=== PATIENT | male | born 1990 | race Caucasian/White ===

== ENCOUNTER → 2018-02-26 | Outpatient (CLI) | payer OTHER ==
[2018-02-26 14:41] LABS: HCT 43.4 % (39.0-53.0); HGB 14.5 gm/dL (13.0-17.5); MCHC 33.3 g/dL (31.0-37.0); Mean Platelet Volume 7.7; Platelet Count 222 k/uL (150-450); RBC 4.99 m/uL (4.30-5.90)
[2018-02-26 14:47] LABS: ALT 38 U/L (21-72); AST 23 U/L (17-59); Albumin 4.6 g/dL (3.5-5.0); Alkaline Phosphatase 55 U/L (38-126); Anion Gap 9 mmol/L; Blood Urea Nitrogen 10 mg/dL (9-20); C Reactive Protein <5.0 mg/L (<10.0); Calcium 9.5 mg/dL (8.4-10.2); Carbon Dioxide 27 mmol/L (22-30); Chloride 105 mmol/L (98-107); Glucose 100 mg/dL (74-99); Potassium 4.5 mmol/L (3.5-5.1); Sodium 141 mmol/L (137-145); Total Bilirubin 0.6 mg/dL (0.2-1.3); Total Protein 7.5 g/dL (6.3-8.2)
[2018-02-26 15:28] LABS: Erythrocyte Sedimentation Rate 7 mm/hr (0-15)
== END | disposition home or self-care (01) ==
LOC: LABWHC1 13:52
DX: R19.4 Change in bowel habit (principal); Z83.49 Family history of other endocrine, nutritional and metabolic diseases
CPT/HCPCS: 36415; 80053; 85027; 85652; 86140

== ENCOUNTER 2018-04-04 13:25 | Emergency (ER) | payer OTHER ==
[2018-04-04] MEDS ORDERED: SODIUM CHLORIDE 0.9% 500 ML IV STA (14:03)
--- NOTE | 2018-04-04 14:13 | ED ---
General Adult HPI - General Chief complaint: Abdominal Pain Stated complaint: abdominal pain Time Seen by Provider: 04/04/18 13:40 Source: patient, RN notes reviewed Mode of arrival: ambulatory Limitations: no limitations - History of Present Illness Initial comments: This is a 27-year-old male who comes in complaining of abdominal pain. Patient states he's been dealing with upper abdominal pain for the last 3 months and over the last week and a half it's been lower abdominal pain is bothering him. Patient states it feels gaseous in nature and he has been seeing a blocklayer for the last 3 months. Patient states she's nauseated at times but does not vomit. Patient denies diarrhea. Patient states he decreased the amount of food that he eats because he feels so that exacerbates the crampy abdominal pain. Patient states this morning he had 3 bowel movements with quite a bit of gas and he temporarily felt better. Patient states currently there is no epigastric abdominal pain like he has had most of the month it is this lower abdominal crampy pain that is been ongoing for a week and a half. - Related Data Home Medications Medication Instructions Recorded Confirmed Dicyclomine [Bentyl] 20 mg PO QID 04/04/18 04/04/18 Esomeprazole Magnesium [NexIUM] 20 mg PO DAILY 04/04/18 04/04/18 Fluticasone Nasal [place] [Flonase 1 spr EA NOSTRIL DAILY 04/04/18 04/04/18 Nasal [place]] diphenhydrAMINE [Benadryl] 50 mg PO DAILY PRN 04/04/18 04/04/18 Allergies Allergy/AdvReac Type Severity Reaction Status Date / Time cephalexin [From Keflex] Allergy Rash/Hives Verified 04/04/18 14:09 dicyclomine Allergy Nausea Verified 04/04/18 14:09 Review of Systems ROS Statement: Those systems with pertinent positive or pertinent negative responses have been documented in the HPI. ROS Other: All systems not noted in ROS Statement are negative. Past Medical History Past Medical History: No Reported History History of Any Multi-Drug Resistant Organisms: None Reported Past Surgical History: Adenoidectomy, Tonsillectomy Past Psychological History: ADD/ADHD Smoking Status: Former smoker Past Alcohol Use History: None Reported Past Drug Use History: None Reported General Exam - General Exam Comments Initial Comments: GENERAL: Patient is well-developed and well-nourished. Patient is nontoxic and well- hydrated and is in mild distress. ENT: Neck is soft and supple. No significant lymphadenopathy is noted. Oropharynx is clear. Moist mucous membranes. Neck has full range of motion without eliciting any pain. EYES: The sclera were anicteric and conjunctiva were pink and moist. Extraocular movements were intact and pupils were equal round and reactive to light. Eyelids were unremarkable. PULMONARY: Unlabored respirations. Good breath sounds bilaterally. No audible rales rhonchi or wheezing was noted. CARDIOVASCULAR: There is a regular rate and rhythm without any murmurs gallops or rubs. ABDOMEN: Minimal lower abdominal pain in the suprapubic region.. No palpable organomegaly was noted. There is no palpable pulsatile mass. SKIN: Skin is clear with no lesions or rashes and otherwise unremarkable. NEUROLOGIC: Patient is alert and oriented x3. Cranial nerves II through XII are grossly intact. Motor and sensory are also intact. Normal speech, volume and content. Symmetrical smile. MUSCULOSKELETAL: Normal extremities with adequate strength and full range of motion. No lower extremity swelling or edema. No calf tenderness. LYMPHATICS: No significant lymphadenopathy is noted PSYCHIATRIC: Normal psychiatric evaluation. Limitations: no limitations Course Vital Signs 04/04/18 13:40 Temperature 98.0 F Pulse Rate 107 H Respiratory 18 Rate Blood Pressure 126/88 O2 Sat by Pulse 99 Oximetry Medical Decision Making - Medical Decision Making Ultrasound showed no acute abnormality. KUB showed no acute abnormality. I went back in and reevaluated the patient he was in no distress and feeling better at this time he will follow-up with Dr. Longoria - Lab Data Result diagrams: 04/04/18 14:44 04/04/18 14:44 Lab Results 04/04/18 04/04/18 04/04/18 Range/Units 14:44 14:44 14:46 WBC 9.6 (3.8-10.6) k/uL RBC 5.20 (4.30-5.90) m/uL Hgb 14.8 (13.0-17.5) gm/dL Hct 44.2 (39.0-53.0) % MCV 84.9 (80.0-100.0) fL MCH 28.5 (25.0-35.0) pg MCHC 33.6 (31.0-37.0) g/dL RDW 12.7 (11.5-15.5) % Plt Count 239 (150-450) k/uL Neutrophils % 81 % Lymphocytes % 13 % Monocytes % 4 % Eosinophils % 1 % Basophils % 1 % Neutrophils # 7.8 H (1.3-7.7) k/uL Lymphocytes # 1.2 (1.0-4.8) k/uL Monocytes # 0.4 (0-1.0) k/uL Eosinophils # 0.1 (0-0.7) k/uL Basophils # 0.1 (0-0.2) k/uL Sodium 141 (137-145) mmol/L Potassium 4.3 (3.5-5.1) mmol/L Chloride 104 (98-107) mmol/L Carbon Dioxide 26 (22-30) mmol/L Anion Gap 11 mmol/L BUN 13 (9-20) mg/dL Creatinine 0.76 (0.66-1.25) mg/dL Est GFR (CKD-EPI)AfAm >90 (>60 ml/min/1.73 sqM) Est GFR (CKD-EPI)NonAf >90 (>60 ml/min/1.73 sqM) Glucose 104 H (74-99) mg/dL Calcium 9.6 (8.4-10.2) mg/dL Total Bilirubin 0.8 (0.2-1.3) mg/dL AST 27 (17-59) U/L ALT 35 (21-72) U/L Alkaline Phosphatase 65 (38-126) U/L Total Protein 8.0 (6.3-8.2) g/dL Albumin 4.7 (3.5-5.0) g/dL Amylase 41 (30-110) U/L Lipase 59 (23-300) U/L Urine Color Yellow Urine Appearance Clear (Clear) Urine pH 6.0 (5.0-8.0) Ur Specific [place] 1.028 (1.001-1.035) Urine Protein Trace H (Negative) Urine Glucose (UA) Negative (Negative) Urine Ketones 2+ H (Negative) Urine Blood Negative (Negative) Urine Nitrite Negative (Negative) Urine Bilirubin Negative (Negative) Urine Urobilinogen 2.0 (<2.0) mg/dL Ur Leukocyte Esterase Negative (Negative) Urine RBC 1 (0-5) /hpf Urine WBC 2 (0-5) /hpf Ur Squamous Epith Cells <1 (0-4) /hpf Hyaline Casts 2 (0-2) /lpf Urine Mucus Many H (None) /hpf Disposition Clinical Impression: Abdominal pain Disposition: HOME SELF-CARE Instructions: Abdominal Pain (ED) Is patient prescribed a controlled substance at d/c from ED?: No Referrals: Medina Fraser MD [Primary Care Provider] - 1-2 days Time of Disposition: 17:12
[2018-04-04 14:56] LABS: Basophils # (A) 0.1 k/uL (0-0.2); Basophils % (A) 1 %; Eosinophils # (A) 0.1 k/uL (0-0.7); Eosinophils % (A) 1 %; HCT 44.2 % (39.0-53.0); HGB 14.8 gm/dL (13.0-17.5); Lymphocytes # (A) 1.2 k/uL (1.0-4.8); Lymphocytes % (A) 13 %; MCH 28.5 pg (25.0-35.0); MCHC 33.6 g/dL (31.0-37.0); MCV 84.9 fL (80.0-100.0); Mean Platelet Volume 7.9; Monocytes # (A) 0.4 k/uL (0-1.0); Monocytes % (A) 4 %; Neutrophils # (A) 7.8 k/uL (1.3-7.7); Neutrophils % (A) 81 %; Platelet Count 239 k/uL (150-450); RDW 12.7 % (11.5-15.5); WBC 9.6 k/uL (3.8-10.6)
[2018-04-04 15:07] LABS: Appearance,Urine Clear (Clear); Bilirubin,Urine Negative (Negative); Blood,Urine Negative (Negative); Color,Urine Yellow; Glucose,Urine (UA) Negative (Negative); Ketones,Urine 2+ (Negative); Leukocyte Esterase,Urine Negative (Negative); Nitrite,Urine Negative (Negative); Protein,Urine Trace (Negative); Specific Gravity,Urine 1.028 (1.001-1.035)
[2018-04-04 15:09] LABS: ALT 35 U/L (21-72); AST 27 U/L (17-59); Albumin 4.7 g/dL (3.5-5.0); Alkaline Phosphatase 65 U/L (38-126); Amylase 41 U/L (30-110); Anion Gap 11 mmol/L; Blood Urea Nitrogen 13 mg/dL (9-20); Calcium 9.6 mg/dL (8.4-10.2); Carbon Dioxide 26 mmol/L (22-30); Chloride 104 mmol/L (98-107); Glucose 104 mg/dL (74-99); Lipase 59 U/L (23-300); Potassium 4.3 mmol/L (3.5-5.1); Sodium 141 mmol/L (137-145); Total Bilirubin 0.8 mg/dL (0.2-1.3)
[2018-04-04 15:10] LABS: Hyaline Casts,Urine 2 /lpf (0-2); Mucus,Urine Many /hpf; RBC,Urine 1 /hpf (0-5); Squamous Epithelial Cell,Urine <1 /hpf (0-4); WBC,Urine 2 /hpf (0-5)
--- NOTE | 2018-04-04 15:36 | XR ---
EXAMINATION TYPE: XR KUB DATE OF EXAM: 04/04/2018 COMPARISON: None INDICATION: Pain x4 months TECHNIQUE: Single view abdomen upright view FINDINGS: There is a nonspecific bowel gas pattern. Psoas margins are normal. No organomegaly is present. No suspicious calcifications are present. No suspicious air-fluid levels or differential air-fluid le vels are present. No free air is present. IMPRESSION: 1. Nonspecific bowel gas pattern.
--- NOTE | 2018-04-04 16:31 | US ---
EXAMINATION TYPE: US abdomen complete DATE OF EXAM: 04/04/2018 COMPARISON: NONE CLINICAL HISTORY: Pain. Intermittent N/V/D x 3 months, gets worse after eating fatty foods. EXAM MEASUREMENTS: Liver Length: 16.5 cm Gallbladder Wall: 0.2 cm CBD: 0.3 cm Spleen: 12.4 cm Right Kidney: 12.1 x 5.1 x 5.4 cm Left Kidney: 11.0 x 5.6 x 5.6 cm Pancreas: obscured by overlying midline bowel gas Liver: The liver is poorly penetrated by the ultrasound being. Gallbladder: wnl Evidence for sonographic Singh's sign: no CBD: wnl Spleen: wnl Right Kidney: wnl Left Kidney: wnl Upper IVC: Not seen Abd Aorta: proximal portion obscured, mid and distal wnl There is no ascites. There is no evidence of cholelithiasis. Common bile duct is unremarkable. T he spleen is unremarkable. Kidneys are symmetric and free of hydronephrosis. No renal lesions are s een. IMPRESSION: Exam somewhat limited. There may be underlying hepatocellular disease, hepatic steatosis.
[2018-04-04 17:22] VITALS: BP 142/71; PULSE 97; RESP 17; TEMP 97.3
== END 2018-04-04 17:22 | disposition home or self-care (01) ==
LOC: EC 13:25
DX: R10.30 Lower abdominal pain, unspecified (principal); R11.0 Nausea; Z87.891 Personal history of nicotine dependence; Z79.51 Long term (current) use of inhaled steroids; Z79.899 Other long term (current) drug therapy; Z88.1 Allergy status to other antibiotic agents; Z88.8 Allergy status to other drugs, medicaments and biological substances
CPT/HCPCS: 36415; 74018; 76700; 80053; 81003; 82150; 83690; 85025; 99284

== ENCOUNTER 2018-04-06 13:00 | Emergency (ER) | payer OTHER ==
[2018-04-06] MEDS ORDERED: SODIUM CHLORIDE 0.9% 1,000 ML IV STA (13:34)
--- NOTE | 2018-04-06 13:43 | ED ---
Abdominal Pain HPI - General Chief Complaint: Abdominal Pain Stated Complaint: Chest Pain,Abd Pain Time Seen by Provider: 04/06/18 13:10 Source: patient, family Mode of arrival: wheelchair Limitations: no limitations - History of Present Illness Initial Comments: This a 27-year-old male with PMH of lactose intolerance presenting today for chief complaint of abdominal pain and diarrhea 11 weeks. Patient states that 11 weeks ago he thought he had a GI virus with diarrhea and vomiting. The vomiting sided however he began having liquid diarrhea daily with any food that the patient ate. He especially noted loss stools with greasy foods. Pt has lost 45 lbs in the past 3 months, unintentionally. 12 days ago pt was evaluated by remote mortgage underwriter, Dr. Longoria who told pt he may have IBS and scheduled an appointment for a colonoscopy and EGD scheduled for this Sunday04/08/18. Patient states that he was seen on 04/04/18 for abdominal pain where an US of the gallbladder returned WNL with unremarkable lab findings, he was instructed to f/u with Dr. Longoria as scheduled. Patient states that at that time the pain was epigastric. Today patient states that the pain is lower abdominal cramping , this is diffuse and not localized to a specific region. He also admits to left upper quadrant pain. In addition mother stopped that patient was dehydrated due to reduced capillary refill. Patient denies any fever, vomiting , nausea, headache, hematochezia, melena, hematemesis, recent travel. Pt states he did take immodium yesterday that decreased the amount of diarrhea. Upon arrival patient's vital signs stable, patient is afebrile. Remainder of ROS negative including patient denies any shortness of breath, chest pain, back pain , numbness or tingling, dysuria or hematuria, constipation, headaches or visual changes, or any other complaints. - Related Data Home Medications Medication Instructions Recorded Confirmed Esomeprazole Magnesium [NexIUM] 20 mg PO DAILY 04/04/18 04/05/18 Fluticasone Nasal [place] [Flonase 1 spr EA NOSTRIL DAILY 04/04/18 04/05/18 Nasal [place]] diphenhydrAMINE [Benadryl] 50 mg PO DAILY PRN 04/04/18 04/05/18 Previous Rx's Medication Instructions Recorded Ciprofloxacin HCl [Cipro] 500 mg PO Q12HR 7 Days #14 tablet 04/06/18 metroNIDAZOLE [Flagyl] 500 mg PO TID 7 Days #21 tab 04/06/18 Allergies Allergy/AdvReac Type Severity Reaction Status Date / Time cephalexin [From Keflex] Allergy Rash/Hives Verified 04/06/18 13:04 dicyclomine Allergy Nausea Verified 04/06/18 13:04 Review of Systems ROS Statement: Those systems with pertinent positive or pertinent negative responses have been documented in the HPI. ROS Other: All systems not noted in ROS Statement are negative. Constitutional: Reports: chills (admits to chills today prior to arrival, no fever). Denies: fever Eyes: Denies: vision change ENT: Denies: throat pain Respiratory: Denies: cough, dyspnea, wheezes, hemoptysis, stridor Cardiovascular: Denies: chest pain, palpitations Gastrointestinal: Reports: abdominal pain (LUQ , diffuse lower abdominal), diarrhea (x 11 weeks liquid green). Denies: nausea, vomiting, constipation, hematemesis, melena, hematochezia Genitourinary: Denies: urgency, dysuria Musculoskeletal: Denies: back pain Skin: Denies: rash, lesions Neurological: Reports: weakness (weakness since he began having diarrhea 11 weeks ago). Denies: headache, numbness, paresthesias, confusion Past Medical History Past Medical History: GERD/Reflux Additional Past Medical History / Comment(s): cramping,bloating, abd. pain, weight loss, frequent diarrhea for >3 months, took immodium this afternoon & feels very dizzy & "horrible", seen in [facility] yesterday for above symptoms History of Any Multi-Drug Resistant Organisms: None Reported Past Surgical History: Adenoidectomy, Tonsillectomy Past Anesthesia/Blood Transfusion Reactions: No Reported Reaction Past Psychological History: ADD/ADHD Smoking Status: Former smoker Past Alcohol Use History: None Reported Past Drug Use History: None Reported - Past Family History Mother Family Medical History: No Reported History General Exam - General Exam Comments Initial Comments: General: The patient is awake and alert, in no distress, and does not appear acutely ill. Eye: +3 pupils are equal, round and reactive to light, extra-ocular movements are intact. No nystagmus. There is normal conjunctiva bilaterally. No signs of icterus. Ears, nose, mouth and throat: There are moist mucous membranes and no oral lesions. Cardiovascular: There is a regular rate and rhythm. No murmur, rub or gallop is appreciated. Respiratory: Lungs are clear to auscultation, respirations are non-labored, breath sounds are equal. No wheezes, stridor, rales, or rhonchi. Gastrointestinal: No noted diaphoresis, jaundice, protecting postures or squirming. Pt does appear to have some pallor, no pallor of the lids, mucosa. Symmetrical pigmentation of abdomen without signs of inflammation, or scars. Striae present over upper abdomen. Umbilicus mildline, inverted without swelling. No dilated veins. Abdomen contour obese, no noted abdominal distention. No visible masses. No peristalsis, aortic pulsations, or ventral hernia. Bowel sounds audible in all 4 quadrants, unremarkable. Mild tenderness to deep palpation over the LUQ, and bilateral lower abdomen, no rigidity, guarding or signs of peritoneal irritation. Liver edge, not palpable. Spleen edge, right and left kidney not palpable. Superior bladder margin non-tender. Special Testing:Negative Inez, Rovsing, McBurney, Jerad, Iliopsoas and obturator tests negative bilaterally. Negative Heel Jar test. No CVA tenderness. Digital rectal exam deferred. Negative adkins turners or cullens sign Musculoskeletal: Normal ROM, no tenderness. Strength 5/5. Sensation intact. Radial pulses equal bilaterally 2+. Capillary refill 2-3 seconds. Neurological: A&O x 3. CN II-XII intact, There are no obvious motor or sensory deficits. Coordination appears grossly intact. Speech is normal. Skin: Skin is warm and dry and no rashes or lesions are noted. Psychiatric: Cooperative, appropriate mood & affect, normal judgment. Limitations: no limitations Course Vital Signs 04/06/18 04/06/18 04/06/18 13:02 14:59 16:01 Temperature 97.7 F 98.4 F Pulse Rate 82 77 79 Respiratory 20 18 16 Rate Blood Pressure 144/99 132/83 130/89 O2 Sat by Pulse 99 100 99 Oximetry Medical Decision Making - Medical Decision Making Abdominal exam as noted above. No signs or symptoms concerning for acute abdomen or peritoneal irritation. Labs unremarkable, as noted above. CT revealed diffuse thickening of the sigmoid colon surrounds numerous diverticula with fascial plane thickening and mesenteric edema there is no evidence of obstruction, there are other scattered colonic diverticula. No right upper quadrant fat stranding patterns no pneumoperitoneum. CT findings consistent with uncomplicated sigmoid diverticulitis without abscess. There is a right renal cyst this incidental finding was discussed with patient and family, as well as CT findings noted above. Patient is unable to give a stool sample during his visit today however he was given supplies to obtain one for his follow-up visit with Dr. Longoria his remote mortgage underwriter, on Sunday. Patient was educated on a clear liquid diet for to 3 days as well as proper administration of antibiotic including avoidance of alcohol with Flagyl. I discussed contraindication of acute diverticulitis and colonoscopy, pt stated he would speak with Von about his procedure scheduled for Sunday. All findings were discussed with Dr. Kline who agrees with impression and plan. At this time feel patient is stable for outpatient therapy of diverticulitis with Flagyl and ciprofloxacin and gastroenterology follow-up as scheduled. Return parameters discussed. Patient denied questions at this time. Patient discharged in stable condition. - Lab Data Result diagrams: 04/06/18 14:00 04/06/18 14:00 Lab Results 04/06/18 04/06/18 Range/Units 14:00 14:00 WBC 6.1 (3.8-10.6) k/uL RBC 5.36 (4.30-5.90) m/uL Hgb 15.1 (13.0-17.5) gm/dL Hct 45.5 (39.0-53.0) % MCV 84.8 (80.0-100.0) fL MCH 28.2 (25.0-35.0) pg MCHC 33.3 (31.0-37.0) g/dL RDW 12.7 (11.5-15.5) % Plt Count 239 (150-450) k/uL Neutrophils % 72 % Lymphocytes % 20 % Monocytes % 5 % Eosinophils % 2 % Basophils % 1 % Neutrophils # 4.3 (1.3-7.7) k/uL Lymphocytes # 1.2 (1.0-4.8) k/uL Monocytes # 0.3 (0-1.0) k/uL Eosinophils # 0.1 (0-0.7) k/uL Basophils # 0.0 (0-0.2) k/uL Sodium 141 (137-145) mmol/L Potassium 4.3 (3.5-5.1) mmol/L Chloride 106 (98-107) mmol/L Carbon Dioxide 23 (22-30) mmol/L Anion Gap 12 mmol/L BUN 12 (9-20) mg/dL Creatinine 0.88 (0.66-1.25) mg/dL Est GFR (CKD-EPI)AfAm >90 (>60 ml/min/1.73 sqM) Est GFR (CKD-EPI)NonAf >90 (>60 ml/min/1.73 sqM) Glucose 97 (74-99) mg/dL Calcium 9.8 (8.4-10.2) mg/dL Total Bilirubin 0.8 (0.2-1.3) mg/dL AST 31 (17-59) U/L ALT 39 (21-72) U/L Alkaline Phosphatase 73 (38-126) U/L Total Protein 8.4 H (6.3-8.2) g/dL Albumin 4.8 (3.5-5.0) g/dL Amylase 53 (30-110) U/L Lipase 85 (23-300) U/L Disposition Clinical Impression: Diverticulitis of sigmoid colon Disposition: HOME SELF-CARE Condition: Good Instructions: Diverticulitis (ED), Diverticulitis Diet (ED) Additional Instructions: Please use medication as discussed. Please follow-up with Dr. Longoria as scheduled Sunday and primary care provider within the next week for evaluation. Please follow-clear liquid diet for next 2-3 days. Please return to emergency room if the symptoms increase or worsen or for any other concerns. Prescriptions: Ciprofloxacin HCl [Cipro] 500 mg PO Q12HR 7 Days #14 tablet metroNIDAZOLE [Flagyl] 500 mg PO TID 7 Days #21 tab Is patient prescribed a controlled substance at d/c from ED?: No Referrals: Medina Fraser MD [Primary Care Provider] - 1-2 days Time of Disposition: 15:42
[2018-04-06 14:12] LABS: Basophils % (A) 1 %; Eosinophils # (A) 0.1 k/uL (0-0.7); Eosinophils % (A) 2 %; HCT 45.5 % (39.0-53.0); HGB 15.1 gm/dL (13.0-17.5); Lymphocytes # (A) 1.2 k/uL (1.0-4.8); Lymphocytes % (A) 20 %; MCH 28.2 pg (25.0-35.0); MCHC 33.3 g/dL (31.0-37.0); MCV 84.8 fL (80.0-100.0); Mean Platelet Volume 7.9; Monocytes # (A) 0.3 k/uL (0-1.0); Monocytes % (A) 5 %; Neutrophils # (A) 4.3 k/uL (1.3-7.7); Neutrophils % (A) 72 %; Platelet Count 239 k/uL (150-450); RBC 5.36 m/uL (4.30-5.90); RDW 12.7 % (11.5-15.5); WBC 6.1 k/uL (3.8-10.6)
[2018-04-06 14:21] LABS: ALT 39 U/L (21-72); AST 31 U/L (17-59); Albumin 4.8 g/dL (3.5-5.0); Alkaline Phosphatase 73 U/L (38-126); Amylase 53 U/L (30-110); Anion Gap 12 mmol/L; Blood Urea Nitrogen 12 mg/dL (9-20); Calcium 9.8 mg/dL (8.4-10.2); Carbon Dioxide 23 mmol/L (22-30); Chloride 106 mmol/L (98-107); Glucose 97 mg/dL (74-99); Lipase 85 U/L (23-300); Potassium 4.3 mmol/L (3.5-5.1); Sodium 141 mmol/L (137-145); Total Bilirubin 0.8 mg/dL (0.2-1.3); Total Protein 8.4 g/dL (6.3-8.2)
--- NOTE | 2018-04-06 14:56 | CT ---
EXAMINATION TYPE: CT abdomen pelvis w con DATE OF EXAM: 04/06/2018 COMPARISON: None HISTORY: Stomach pains that radiate down left side into pelvis CT DLP: 1671 mGycm Automated exposure control for dose reduction was used. TECHNIQUE: Helical acquisition of images was performed from the lung bases through the pelvis. CONTRAST: Performed without Oral Contrast and with IV Contrast, patient injected with 100 mL of Isovue 300. FINDINGS: LUNG BASES: There is minimal bibasilar subsegmental dependent atelectasis. LIVER/GB: No significant abnormality is appreciated. No cholelithiasis. PANCREAS: No significant abnormality is seen. SPLEEN: No significant abnormality is seen. No splenomegaly. ADRENALS: No significant abnormality is seen. No nodularity or thickening. KIDNEYS: Although the right renal lesion is fluid attenuated is indeterminate as there are irregular margins. This measures 1.6 cm in the right superior pole. Renal ultrasound could ensure increased thr ough transmission although this is favored to be benign as there is no appreciable enhancement on del ayed imaging. FREE AIR: No free air is visualized. REPRODUCTIVE ORGANS: No significant abnormality is seen URINARY BLADDER: No significant abnormality is seen. ADENOPATHY: Scattered nonenlarged mesenteric lymph nodes are likely reactive to the pelvic inflammat ory change. No greater than 1 cm short axis lymph nodes are seen within the abdomen or pelvis. OSSEOUS STRUCTURES: No significant abnormality is seen. BOWEL: There is diffuse thickening of the sigmoid colon surrounds numerous diverticula with fascial plane thickening and mesenteric edema. No proximal obstruction. Remainder of the bowel is unremarkabl e other than few other scattered colonic diverticula. No right lower quadrant fat stranding changes. No dilated large or small bowel. No fluid collection to suggest abscess. No pneumoperitoneum. IMPRESSION: 1. ACUTE UNCOMPLICATED SIGMOID DIVERTICULITIS. NO PNEUMOPERITONEUM OR ABSCESS. 2. POSSIBLE RIGHT RENAL CYST. RENAL ULTRASOUND COULD ASSESS FOR INCREASED OR TRANSMISSION ON A NONEME RGENT BASIS.
[2018-04-06 16:02] VITALS: BP 130/89; PULSE 79; RESP 16; TEMP 98.4
== END 2018-04-06 16:14 | disposition home or self-care (01) ==
LOC: EC 13:00
DX: K57.32 Diverticulitis of large intestine without perforation or abscess without bleeding (principal); K21.9 Gastro-esophageal reflux disease without esophagitis; Z87.891 Personal history of nicotine dependence; Z79.51 Long term (current) use of inhaled steroids; Z79.899 Other long term (current) drug therapy; Z88.1 Allergy status to other antibiotic agents; Z88.8 Allergy status to other drugs, medicaments and biological substances
CPT/HCPCS: 36415; 80053; 82150; 83690; 85025; 74177; 99284; 96360; 96361; Q9967

== ENCOUNTER 2018-06-07 08:42 | Day surgery (SDC) | payer OTHER ==
[2018-05-31 10:07] VITALS: BMI 28.5
[~2018-06-07 08:42] MED LIST: CLINDAMYCIN 900 MG in DEXTROSE 5% IN WATER 50 ML IVPB ONE; DEXAMETHASONE SOD PHOSPHATE 10 MG/ML 1 ML VIAL IV ONE; GENTAMICIN 400 MG in SODIUM CHLORIDE 0.9% 100 ML IVPB ONE; HEPARIN SODIUM,PORCINE 5,000 UNIT/ML 1 ML VIAL SQ ONE; LACTATED RINGERS 1,000 ML IV SCH; MIDAZOLAM 2 MG/2 ML VIAL IV PRN; ONDANSETRON 4 MG/2 ML VIAL IVP ONE; SCOPOLAMINE 1.5MG/72HR PATCH TRANSDERM ONE
[2018-06-07 09:33] VITALS: RESP 16
[2018-06-07] MEDS ORDERED: LIDOCAINE 1% INJ 10MG/ML (20 ML MDV) ONE (10:47)
[2018-06-07] MEDS ORDERED: NEOSTIGMINE 1 MG/ML 10 ML VIAL ONE (10:47)
[2018-06-07] MEDS ORDERED: SUCCINYLCHOLINE CHLORIDE 100 MG/5 ML SYR IV ONE (10:47)
[2018-06-07] MEDS ORDERED: PROPOFOL 10 MG/ML 20 ML VIAL IV ONE (10:47)
[2018-06-07] MEDS ORDERED: GLYCOPYRROLATE 0.2 MG/ML 2 ML VIAL ONE (10:47)
[2018-06-07] MEDS ORDERED: KETOROLAC 30 MG/ML 1 ML VIAL ONE (10:47)
[2018-06-07] MEDS ORDERED: fentaNYL (PF) 50 MCG/ML 2 ML AMP ONE (10:47)
[2018-06-07] MEDS ORDERED: MIDAZOLAM 2 MG/2 ML VIAL ONE (10:47)
[2018-06-07] MEDS ORDERED: ROCURONIUM BROMIDE 10 MG/ML 10 ML VIAL IV ONE (10:47)
--- NOTE | 2018-06-07 10:47 | P.GSHP ---
History of Present Illness H&P Date: 06/07/18 Chief Complaint: Right upper quadrant pain This is a 28-year-old male presents today for a laparoscopic cholecystectomy. Patient's had complaints of right quadrant pain after eating greasy and fried foods. He was diagnosed with chronic cholecystitis. Past Medical History Past Medical History: GERD/Reflux Additional Past Medical History / Comment(s): MIGRAINE HEADACHE, CYST ON THE KIDNEY", DIVERTICULITIS History of Any Multi-Drug Resistant Organisms: None Reported Past Surgical History: Adenoidectomy, Tonsillectomy Additional Past Surgical History / Comment(s): BILATERAL MYRINGOTOMY WITH TUBES Past Anesthesia/Blood Transfusion Reactions: No Reported Reaction Smoking Status: Former smoker - Past Family History Mother Family Medical History: No Reported History Medications and Allergies Home Medications Medication Instructions Recorded Confirmed Type Esomeprazole Magnesium [NexIUM] 20 mg PO DAILY 04/04/18 06/07/18 History Fluticasone Nasal [place] [Flonase 1 spr EA NOSTRIL DAILY PRN 04/04/18 06/07/18 History Nasal [place]] Cetirizine HCl [Zyrtec] 10 mg PO DAILY 05/31/18 06/07/18 History Allergies Allergy/AdvReac Type Severity Reaction Status Date / Time cephalexin [From Keflex] Allergy Rash/Hives Verified 06/07/18 09:46 dicyclomine Allergy Nausea Verified 06/07/18 09:46 ciprofloxacin [From Cipro] AdvReac Nausea Verified 06/07/18 09:46 Surgical - Exam Vital Signs Temp Pulse Resp BP Pulse Ox 97.9 F 92 16 157/94 98 06/07/18 09:32 06/07/18 09:32 06/07/18 09:32 06/07/18 09:32 06/07/18 09:32 - General well developed, no distress - Eyes PERRL - ENT normal pinna - Neck no masses - Respiratory normal expansion - Cardiovascular Rhythm: regular - Abdomen Abdomen: soft, non tender Assessment and Plan Assessment: Chronic cholecystitis. We'll perform laparoscopic cholecystectomy.
[2018-06-07] MEDS ORDERED: BUPIVACAIN-EPI 0.25%-1:200,000 30 ML VIAL IJ ONE (11:15)
[2018-06-07 11:50] VITALS: TEMP 97.4
--- NOTE | 2018-06-07 12:02 | P.OP ---
Date of Procedure: 06/07/18 Preoperative Diagnosis: Cholecystitis Postoperative Diagnosis: Cholecystitis Procedure(s) Performed: Laparoscopic cholecystectomy Anesthesia: PRINCE Surgeon: Ji Arauz Estimated Blood Loss (ml): 5 Pathology: other (Gallbladder) Condition: stable Disposition: PACU Description of Procedure: The patient was placed on the operating table. The patient received a general endotracheal tube anesthesia. The patients abdomen was prepped and draped in the usual sterile fashion. Through an infraumbilical stab incision, the fascia of the anterior abdominal wall was grasped with a pair of Kochers and then the Veress needle was placed in the peritoneal cavity. Position of the Veress needle was confirmed with positive drop test. The abdomen was then insufflated. After adequate insufflation, the 10 mm trocar was placed in the peritoneal cavity. Following this the laparoscope was placed in the peritoneal cavity. The patient was placed in the head-up, right side up position and then a 5 mm trocar was placed in the right lateral and right subcostal position under direct visualization. A 8 mm trocar was placed in the epigastric position. The gallbladder was grasped in the fundus and infundibulum. Traction on the gallbladder was placed in the lateral and the cephalad positions. The triangle of Calot was visualized.. The cystic duct was bluntly dissected until the union of the cystic duct and common bile duct was seen. The cystic duct was then divided and sealed with the Harmonic scissors. A PDS Endoloop was then placed throughout the cystic duct stump. The cystic artery divided and sealed with the Harmonic scissors. The gallbladder was then removed from the liver bed using Harmonic scissors. The gallbladder was then extracted through the epigastric port site. Operative field was checked for any bleeding spots and Harmonic scissors was used to coagulate the liver bed. The abdomen was irrigated. The trocars were removed. The skin was closed using interrupted 3-0 Vicryl suture. Dermabond dressing were applied. The patient tolerated the procedure well.
[2018-06-07] MEDS ORDERED: LACTATED RINGERS 1,000 ML IV ONE ×2 (12:24)
[2018-06-07] MEDS: fentaNYL (PF) 50 MCG/ML 2 ML AMP IV PRN ×2 (12:30→12:33)
[2018-06-07 14:29] VITALS: BP 112/70; PULSE 100
[2018-06-07] MEDS ORDERED: HYDROcodone/APAP 7.5-325MG 1 EACH TAB PO ONE (15:04)
== END 2018-06-07 15:51 | disposition home or self-care (01) ==
LOC: OR 08:42
PROVIDERS: ATTEND Surgery
DX: K80.10 Calculus of gallbladder with chronic cholecystitis without obstruction (principal); K21.9 Gastro-esophageal reflux disease without esophagitis; Z87.891 Personal history of nicotine dependence; G43.909 Migraine, unspecified, not intractable, without status migrainosus; Z79.899 Other long term (current) drug therapy; Z88.1 Allergy status to other antibiotic agents
CPT/HCPCS: 88304; 47562; J2250; J1644; J1100; J2710; J2405; J2001; J3010; J1885; J0330; J2704

== ENCOUNTER 2020-10-02 19:12 | Emergency (ER) | payer OTHER ==
[2020-10-02] MEDS ORDERED: KETOROLAC 15 MG/ML 1 ML VIAL IVP STA (21:20)
[2020-10-02] MEDS ORDERED: SODIUM CHLORIDE 0.9% 500 ML 500 ML IV ONE (21:20)
[2020-10-02 21:26] LABS: Basophils % (A) 1 %; Eosinophils # (A) 0.1 k/uL (0-0.7); Eosinophils % (A) 2 %; HCT 43.1 % (39.0-53.0); HGB 14.7 gm/dL (13.0-17.5); Lymphocytes # (A) 1.3 k/uL (1.0-4.8); Lymphocytes % (A) 32 %; MCH 29.5 pg (25.0-35.0); MCHC 34.1 g/dL (31.0-37.0); MCV 86.5 fL (80.0-100.0); Mean Platelet Volume 8.4; Monocytes # (A) 0.3 k/uL (0-1.0); Monocytes % (A) 7 %; Neutrophils # (A) 2.4 k/uL (1.3-7.7); Neutrophils % (A) 58 %; Platelet Count 137 k/uL (150-450); RBC 4.98 m/uL (4.30-5.90); RDW 12.4 % (11.5-15.5); WBC 4.2 k/uL (3.8-10.6)
[2020-10-02] MEDS ORDERED: BAMLANIVIMAB (EUA) 700 MG, ETESEVIMAB (EUA) 1,400 MG in SODIUM CHLORIDE 0.9% 50 ML IVPB ONE (21:30)
[2020-10-02 21:36] LABS: ALT 42 U/L (4-49); AST 51 U/L (17-59); African American GFR (CKD) >90 (>60 ml/min/1.73 sqM); Albumin 4.5 g/dL (3.5-5.0); Alkaline Phosphatase 63 U/L (38-126); Anion Gap 8 mmol/L; Blood Urea Nitrogen 14 mg/dL (9-20); Calcium 8.6 mg/dL (8.4-10.2); Carbon Dioxide 26 mmol/L (22-30); Chloride 103 mmol/L (98-107); Glucose 104 mg/dL (74-99); Non-African American GFR(CKD) >90 (>60 ml/min/1.73 sqM); Potassium 4.1 mmol/L (3.5-5.1); Sodium 137 mmol/L (137-145); Total Bilirubin 0.7 mg/dL (0.2-1.3); Total Protein 7.6 g/dL (6.3-8.2)
--- NOTE | 2020-10-02 21:39 | XR ---
EXAMINATION TYPE: XR chest 2V DATE OF EXAM: 10/02/2020 COMPARISON: NONE HISTORY: Short of breath TECHNIQUE: 2 views FINDINGS: Heart and mediastinum are normal. Lungs are clear of infiltrate. There is no heart failure. There are no hilar masses. Costophrenic angles are clear. IMPRESSION: No active cardiopulmonary disease. Normal heart.
--- NOTE | 2020-10-02 21:42 | ED ---
General Adult HPI - General Chief complaint: Shortness of Breath Stated complaint: SOB,Fever,Cough, COVID + Time Seen by Provider: 10/02/20 20:49 Source: patient Mode of arrival: ambulatory Limitations: no limitations - History of Present Illness Initial comments: 30-year-old male presenting for positive Covid with terrible coughing episodes shortness of breath. Patient states that he has had difficulty breathing secondary to frequent coughing episodes. Patient states that he began having body aches and feeling as though he had a fever on September 25 he states he tested +2 days later. Patient provided results on a patient portal on his phone. Carin ent states that since he continues to have cough body aches and shortness of breath he states he coughed so much that he feels short of breath he denies any pain with deep inspiration, chest pressure, leg swelling, calf pain, nausea, vomiting, diarrhea. Pateint admits to fevers. Patient on arrival is saturating well on RA - Related Data Home Medications Medication Instructions Recorded Confirmed Esomeprazole Magnesium [NexIUM] 20 mg PO DAILY 04/04/18 07/23/18 Fluticasone Nasal [place] [Flonase 1 spr EA NOSTRIL DAILY PRN 04/04/18 07/23/18 Nasal [place]] Cetirizine HCl [Zyrtec] 10 mg PO DAILY 05/31/18 07/23/18 Ascorbic Acid [Vitamin C] 1,000 mg PO DAILY 07/22/18 07/23/18 Cholecalciferol [Vitamin D3] 5,000 unit PO BID 07/22/18 07/23/18 Dextroamphetamine/Amphetamine 10 mg PO BID PRN 07/22/18 07/23/18 [Adderall] L.acidoph,Paracasei, B.lactis 1 each PO DAILY 07/22/18 07/23/18 [Probiotic] Tucker Red Triple Absorption 1 tab PO DAILY 07/22/18 07/23/18 Ranitidine HCl [Zantac] 150 mg PO DAILY PRN 07/22/18 07/23/18 Previous Rx's Medication Instructions Recorded Djgf-[id number]-Emw 6.25-5-10Mg/5Ml 5 ml PO Q6H 3 Days #60 ml 10/02/20 [Phenergan VC with Codeine] Allergies Allergy/AdvReac Type Severity Reaction Status Date / Time cephalexin [From Keflex] Allergy Rash/Hives Verified 10/02/20 19:18 dicyclomine Allergy anxiety Verified 10/02/20 19:18 ciprofloxacin [From Cipro] AdvReac Nausea Verified 10/02/20 19:18 Review of Systems ROS Statement: Those systems with pertinent positive or pertinent negative responses have been documented in the HPI. ROS Other: All systems not noted in ROS Statement are negative. 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", DIVERTICULITIS, hx palpitations, History of Any Multi-Drug Resistant Organisms: None Reported Past Surgical History: Adenoidectomy, Cholecystectomy, Ear Surgery, Tonsillectomy Additional Past Surgical History / Comment(s): BILATERAL MYRINGOTOMY WITH TUBES, mole removed from back Past Anesthesia/Blood Transfusion Reactions: No Reported Reaction Past Psychological History: ADD/ADHD Smoking Status: Never smoker Past Alcohol Use History: None Reported Past Drug Use History: None Reported - Past Family History Mother Family Medical History: No Reported History General Exam - General Exam Comments Initial Comments: General: The patient is awake and alert, in no distress, and does not appear acutely ill. Eye: Pupils are equal, round and reactive to light, extra-ocular movements are intact. No nystagmus. There is normal conjunctiva bilaterally. No signs of icterus. Ears, nose, mouth and throat: There are moist mucous membranes and no oral lesions. Neck: The neck is supple, there is no tenderness or JVD. Cardiovascular: There is a regular rate and rhythm. No murmur, rub or gallop is appreciated. Respiratory: Lungs are clear to auscultation, respirations are non-labored, breath sounds are equal. No wheezes, stridor, rales, or rhonchi. Dry cough Musculoskeletal: Normal ROM, no tenderness. Strength 5/5. Sensation intact. Pulses equal bilaterally 2+. Neurological: A&O x 3. CN II-XII intact, There are no obvious motor or sensory deficits. Coordination appears grossly intact. Speech is normal. Skin: Skin is warm and dry and no rashes or lesions are noted. No leg swelling or calf pain Psychiatric: Cooperative, appropriate mood & affect, normal judgment. Limitations: no limitations Course Vital Signs 10/02/20 10/02/20 10/02/20 19:15 21:50 22:27 Temperature 98.5 F 98.0 F 98.1 F Pulse Rate 88 72 69 Respiratory 24 20 18 Rate Blood Pressure 130/91 118/73 109/71 O2 Sat by Pulse 99 96 98 Oximetry 10/02/20 23:44 Temperature 98.5 F Pulse Rate 70 Respiratory 18 Rate Blood Pressure 116/72 O2 Sat by Pulse 98 Oximetry Medical Decision Making - Medical Decision Making 30-year-old male presenting to the ER today for chief complaint of cough. He has positive comfortable test with him. Patient is over 36 BMI. patient does not appear toxic, no chest pain. patient has no tachycardia or hypoxia. he was given BAM after discussing risk vs benefit. patient had no adverse reaction in the ER. Patient discharged appearing well with return parameters and cough medications, i discussed that the medication was a controlled substance and cautioned patient on excessive use/addition, risk of operating machinery or working/driving while taking the medication. pt verbalized understanding. He discussed with Dr. Zafar who is agreeable to care plan and discharge. - Lab Data Result diagrams: 10/02/20 21:05 10/02/20 21:20 Lab Results 10/02/20 10/02/20 Range/Units 21:05 21:20 WBC 4.2 (3.8-10.6) k/uL RBC 4.98 (4.30-5.90) m/uL Hgb 14.7 (13.0-17.5) gm/dL Hct 43.1 (39.0-53.0) % MCV 86.5 (80.0-100.0) fL MCH 29.5 (25.0-35.0) pg MCHC 34.1 (31.0-37.0) g/dL RDW 12.4 (11.5-15.5) % Plt Count 137 L (150-450) k/uL MPV 8.4 Neutrophils % 58 % Lymphocytes % 32 % Monocytes % 7 % Eosinophils % 2 % Basophils % 1 % Neutrophils # 2.4 (1.3-7.7) k/uL Lymphocytes # 1.3 (1.0-4.8) k/uL Monocytes # 0.3 (0-1.0) k/uL Eosinophils # 0.1 (0-0.7) k/uL Basophils # 0.0 (0-0.2) k/uL Sodium 137 (137-145) mmol/L Potassium 4.1 (3.5-5.1) mmol/L Chloride 103 (98-107) mmol/L Carbon Dioxide 26 (22-30) mmol/L Anion Gap 8 mmol/L BUN 14 (9-20) mg/dL Creatinine 0.85 (0.66-1.25) mg/dL Est GFR (CKD-EPI)AfAm >90 (>60 ml/min/1.73 sqM) Est GFR (CKD-EPI)NonAf >90 (>60 ml/min/1.73 sqM) Glucose 104 H (74-99) mg/dL Calcium 8.6 (8.4-10.2) mg/dL Total Bilirubin 0.7 (0.2-1.3) mg/dL AST 51 (17-59) U/L ALT 42 (4-49) U/L Alkaline Phosphatase 63 (38-126) U/L Total Protein 7.6 (6.3-8.2) g/dL Albumin 4.5 (3.5-5.0) g/dL Disposition Clinical Impression: COVID-19, Cough Disposition: HOME SELF-CARE Condition: Good Instructions (If sedation given, give patient instructions): Coronavirus Disease 2019 (COVID-19) Additional Instructions: Please use medication as discussed. Please follow-up with family doctor in the next 2 days. Please return to emergency room if the symptoms increase or worsen or for any other concerns. Prescriptions: [id number]-[id number]-Dhn 6.25-5-10Mg/5Ml [Phenergan VC with Codeine] 5 ml PO Q6H 3 Days #60 ml Is patient prescribed a controlled substance at d/c from ED?: No Referrals: Burt Foote MD [Primary Care Provider] - 1-2 days Time of Disposition: 01:09
[2020-10-02 22:39] VITALS: RESP 18
[2020-10-02] MEDS ORDERED: guaiFENesin-Coden 100-10MG/5ML 10 ML CUP PO ONE (22:45)
[2020-10-02 23:46] VITALS: BP 116/72; PULSE 70; TEMP 98.5
== END 2020-10-02 23:45 | disposition home or self-care (01) ==
LOC: EC 19:12
DX: U07.1 COVID-19 (principal); K21.9 Gastro-esophageal reflux disease without esophagitis
CPT/HCPCS: 36415; 80053; 85025; 71046; 99285; 96365; 96375; J1885; Q0245